=== PATIENT | female | born 1975 | race Caucasian/White ===

== ENCOUNTER 2018-12-14 01:51 | Emergency (ER) | payer MEDICAID ==
[~2018-12-14] VITALS: Ht 165.1 cm; Wt 90.7 kg
--- NOTE | 2018-12-14 01:54 | NUR ---
pt called for triage, no answer.
[2018-12-14 02:14] VITALS: BP 134/91
== END 2018-12-14 03:04 | disposition home or self-care (01) ==
LOC: ER 01:51
DX: L08.9 Local infection of the skin and subcutaneous tissue, unspecified (principal); B95.8 Unspecified staphylococcus as the cause of diseases classified elsewhere; F17.200 Nicotine dependence, unspecified, uncomplicated; Z88.2 Allergy status to sulfonamides

== ENCOUNTER 2019-11-21 04:45 | Emergency (ER) | payer MEDICAID ==
[~2019-11-21] VITALS: Ht 165.1 cm; Wt 81.6 kg
[2019-11-21 04:45] VITALS: BP 153/97
== END 2019-11-21 06:16 | disposition home or self-care (01) ==
LOC: ER 04:45
DX: M62.838 Other muscle spasm (principal); M54.12 Radiculopathy, cervical region; F17.200 Nicotine dependence, unspecified, uncomplicated; Z88.2 Allergy status to sulfonamides

== ENCOUNTER 2021-08-01 19:34 | Emergency (ER) | payer MEDICAID ==
[~2021-08-01] VITALS: Ht 165.1 cm; Wt 86.2 kg
[2021-08-01 20:08] VITALS: BP 140/87
[2021-08-01] MEDS ORDERED: VALA10002 PO (20:22)
--- NOTE | 2021-08-01 21:06 | NUR ---
Patient discharged to home in stable condition. Written and verbal after care instructions given. Patient verbalizes understanding of instruction. RX given
== END 2021-08-01 21:06 | disposition home or self-care (01) ==
LOC: ER 19:44
DX: B02.9 Zoster without complications (principal)